=== PATIENT | male | born 1970 | race African-American/Black ===

== ENCOUNTER 2017-01-22 21:14 | Emergency (ER) | payer OTHER ==
[~2017-01-22] VITALS: Ht 170.2 cm; Wt 77.0 kg
[2017-01-22 22:09] VITALS: BP 137/96
== END 2017-01-23 00:29 | disposition home or self-care (01) ==
LOC: ER 21:16
DX: H57.11 Ocular pain, right eye (principal); H40.9 Unspecified glaucoma; I10 Essential (primary) hypertension; E11.9 Type 2 diabetes mellitus without complications; E78.00 Pure hypercholesterolemia, unspecified; Z98.890 Other specified postprocedural states
CPT/HCPCS: 99281